=== PATIENT | male | born 1945 | race Caucasian/White ===

== ENCOUNTER → 2017-08-28 | Outpatient (CLI) | payer MEDICARE, OTHER ==
[~2017-08-28] MED LIST: ASCO500; ASPI325EC; CALCA500CH; FLAX; GLUCOSAMINE &1 EACH; Multiple Vitam1 EAC1
== END ==
LOC: LAB 11:37
DX: R97.20 Elevated prostate specific antigen [PSA] (principal)
CPT/HCPCS: 87070

== ENCOUNTER → 2017-09-05 | Outpatient (CLI) | payer MEDICARE, OTHER | END | disposition home or self-care (01) | LOC: PLD 08:27 | DX: N42.31 Prostatic intraepithelial neoplasia (principal) | CPT/HCPCS: 88305; 88341; 88342 ==

== ENCOUNTER → 2022-04-04 | Outpatient (CLI) | payer MEDICARE, OTHER | LOC: PLD 11:07 → LAB SHORT 11:07 | DX: D03.4 Melanoma in situ of scalp and neck (principal); L57.0 Actinic keratosis | CPT/HCPCS: 88305; 88342 ==

== ENCOUNTER → 2022-04-27 | Outpatient (CLI) | payer MEDICARE, OTHER | LOC: LAB SHORT 11:47 → PLD 11:47 | DX: D03.4 Melanoma in situ of scalp and neck (principal) | CPT/HCPCS: 88305 ==

== ENCOUNTER → 2022-09-06 | Outpatient (CLI) | payer MEDICARE, OTHER | END | disposition home or self-care (01) | LOC: LAB SHORT 12:14 → PLD 12:14 | DX: C44.519 Basal cell carcinoma of skin of other part of trunk (principal); D03.59 Melanoma in situ of other part of trunk | CPT/HCPCS: 88305 ==

== ENCOUNTER → 2022-09-26 | Outpatient (CLI) | payer MEDICARE, OTHER | LOC: PLD 12:06 → LAB SHORT 12:06 | DX: D03.59 Melanoma in situ of other part of trunk (principal) | CPT/HCPCS: 88305 ==

== ENCOUNTER → 2023-03-08 | Outpatient (CLI) | payer MEDICARE, OTHER ==
[2023-03-08 13:11] LABS: Source, Urine Voided
[2023-03-08 15:36] LABS: Bilirubin, Urine Neg (Neg); Blood, Urine Neg (Neg); Color, Urine Amber (P-Yellow); Glucose Qualitative, Urine Neg (Neg); Ketones, Urine 1+ (Neg); Leukocyte Esterase, Urine 1+ (Neg); Nitrite, Urine Neg (Neg); Protein, Urine 1+ (Neg); Specific Gravity, Urine 1.025 (1.003-1.022); Urobilinogen, Urine NORM (Normal)
[2023-03-08 15:56] LABS: Appearance, Urine Hazy (Clear)
[2023-03-08 15:57] LABS: Bacteria Mod /hpf; Red Blood Cells, Urine 0-2 /hpf (0-2)
[2023-03-08 15:58] LABS: Amorphous Light (0-Heavy); Calcium Oxalate Crystals Mod /hpf; Mucus Light (0-Heavy); Squamous Epithelial Cells Rare /hpf (Few)
== END ==
LOC: LAB SHORT 13:09 → LAB 13:09
PROVIDERS: Internal Medicine
DX: R35.0 Frequency of micturition (principal)
CPT/HCPCS: 81001; 87086

== ENCOUNTER 2024-03-27 17:46 | Emergency (ER) | payer MEDICARE, OTHER ==
[~2024-03-27] VITALS: Ht 172.7 cm; Wt 81.7 kg
[2024-03-27 18:13] VITALS: BP 104/82
[2024-03-27] MEDS ORDERED: Acetaminophen 500 MG Tab PO ONE (18:15)
[2024-03-27 18:21] LABS: Source, Urine Clean Catch
[2024-03-27 18:29] LABS: Appearance, Urine Cloudy (Clear); Bilirubin, Urine Neg (Neg); Blood, Urine 2+ (Neg); Color, Urine Yellow (P-Yellow); Glucose Qualitative, Urine Neg (Neg); Ketones, Urine Neg (Neg); Leukocyte Esterase, Urine 3+ (Neg); Nitrite, Urine Neg (Neg); Protein, Urine 2+ (Neg); Specific Gravity, Urine 1.025 (1.003-1.022); Urobilinogen, Urine NORM (Normal)
[2024-03-27 18:52] LABS: Bacteria Many /hpf; Mucus Light (0-Heavy); Red Blood Cells, Urine 0-2 /hpf (0-2); Squamous Epithelial Cells Rare /hpf (Few); White Blood Cells, Urine TNTC /hpf (0-5)
[2024-03-27] MEDS ORDERED: Bactrim Ds Tab1 EACH PO (19:44)
[2024-03-27] MEDS ORDERED: Trimethoprim/Sulfamethoxazole DS Tab PO ONE (19:45)
== END 2024-03-27 21:01 | disposition home or self-care (01) ==
LOC: ER 17:46
PROVIDERS: Physician Assistant
DX: N39.0 Urinary tract infection, site not specified (principal); Z79.899 Other long term (current) drug therapy; Z79.82 Long term (current) use of aspirin; Z87.891 Personal history of nicotine dependence
CPT/HCPCS: 51702; 51798; 81001; 87077; 87086; 87186; 99283; A9270

== ENCOUNTER 2024-04-24 15:11 | Observation (INO) | payer MEDICARE, OTHER ==
[~2024-04-24] VITALS: Ht 172.7 cm; Wt 77.1 kg
[~2024-04-24 15:11] MED LIST changes: -ASCO500; +ASCO500 PO; -ASPI325EC; +ASPI500 PO; +Bactrim Ds Tab1 EACH PO; -CALCA500CH; +Calcium Carbon500 MG PO
[2024-04-24 15:48] LABS: BASOPHILS ABSOLUTE AUTO 0.02 K/mm3 (0.00-0.23); BASOPHILS PERCENT AUTO 0 % (0-2); EOSINOPHILS ABSOLUTE AUTO 0.04 K/mm3 (0.00-0.68); EOSINOPHILS PERCENT AUTO 0 % (0-6); Hematocrit 39.8 % (37.0-53.0); Hemoglobin 13.6 g/dL (13.5-17.5); IMMATURE GRAN ABSOLUTE AUTO 0.04 K/mm3 (0.00-0.10); IMMATURE GRAN PERCENT AUTO 0 % (0-1); LYMPHOCYTES ABSOLUTE AUTO 1.98 K/mm3 (0.84-5.20); LYMPHOCYTES PERCENT AUTO 21 % (21-46); MONOCYTES ABSOLUTE AUTO 0.87 K/mm3 (0.16-1.47); MONOCYTES PERCENT AUTO 9 % (4-13); Mean Corpuscular HGB 31.6 pg (26.0-34.0); Mean Corpuscular HGB Conc 34.2 g/dL (31.5-36.5); Mean Corpuscular Volume 93 fL (80-100); Mean Platelet Volume 10.9 fL (9.1-12.4); NEUTROPHILS ABSOLUTE AUTO 6.54 K/mm3 (1.96-9.15); NEUTROPHILS PERCENT AUTO 69 % (41-73); Platelet Count 275 K/mm3 (150-400); RDW Coefficient Variation 12.6 % (11.7-14.2); White Blood Cell Count 9.49 K/mm3 (4.00-11.30)
[2024-04-24 15:56] LABS: Source, Urine Clean Catch
[2024-04-24 16:03] LABS: Appearance, Urine Hazy (Clear); Bilirubin, Urine Neg (Neg); Blood, Urine 4+ (Neg); Color, Urine Yellow (P-Yellow); Glucose Qualitative, Urine Neg (Neg); Ketones, Urine 1+ (Neg); Leukocyte Esterase, Urine 1+ (Neg); Nitrite, Urine Neg (Neg); Protein, Urine 4+ (Neg); Specific Gravity, Urine 1.025 (1.003-1.022); Urobilinogen, Urine 1+ (Normal)
[2024-04-24 16:16] LABS: Bacteria Many /hpf; Squamous Epithelial Cells Rare /hpf (Few)
[2024-04-24 16:21] LABS: Albumin, Blood 3.2 g/dL (3.4-5.0); Albumin/Globulin Ratio 0.9 (0.8-1.8); Bilirubin, Total 0.6 mg/dL (0.1-1.0); Bun/Creatinine Ratio 17.3 (12.0-20.0); Calcium, Blood 8.9 mg/dL (8.5-10.1); Creatinine, Blood 1.62 mg/dL (0.60-1.20); Globulin, Blood 3.6 g/dL (2.2-4.0); Potassium, Blood 3.5 mmol/L (3.5-5.5); Total Protein, Blood 6.8 g/dL (6.4-8.2)
[2024-04-24] MEDS ORDERED: NS 1,000 ML IV SCH ×2 (17:35→19:25)
[2024-04-24] MEDS ORDERED: CefTRIAXone Sodium 1,000 MG in NS 100 ML IV ONE (17:35)
[2024-04-24 18:26] LABS: Source, Urine Clean Catch
[2024-04-24 18:29] LABS: Appearance, Urine Clear (Clear); Bilirubin, Urine Neg (Neg); Blood, Urine 1+ (Neg); Color, Urine Yellow (P-Yellow); Glucose Qualitative, Urine Neg (Neg); Ketones, Urine Neg (Neg); Leukocyte Esterase, Urine Neg (Neg); Nitrite, Urine Neg (Neg); Protein, Urine 1+ (Neg); Urobilinogen, Urine NORM (Normal)
[2024-04-24 18:36] LABS: Bacteria Rare /hpf; Red Blood Cells, Urine 0-2 /hpf (0-2); Squamous Epithelial Cells Rare /hpf (Few)
[2024-04-24] MEDS ORDERED: Ondansetron HCl 2 MG / ML 2ML Vial IV PRN (19:20)
[2024-04-24] MEDS ORDERED: FLU VACC TS2024-25(6MOS UP)/PF 45 MCG/0.5 ML SYRINGE IM ONE (19:20)
[2024-04-24 20:17] LABS: Creatinine, Urine Random 36.9 mg/dL (27.00-270.00)
[2024-04-24] MEDS ORDERED: Doxycycline Hyclate 100 MG TAB PO SCH (21:00)
[2024-04-24] MEDS ORDERED: Lactobacil 2-S.Thermo-Bifido 1 1 Cap PO SCH (21:00)
[2024-04-24 21:01] LABS: Eosinophils-Raw #,Urine 0
[2024-04-24 21:02] LABS: White Blood Cells Urine 0-2 /hpf (0-5)
[2024-04-24] MEDS ORDERED: LOSA50 PO (21:26)
[2024-04-24 21:27] VITALS: BP 97/60
[2024-04-24] MEDS ORDERED: CHLO25B PO (21:27)
[2024-04-25 04:30] VITALS: BP 117/77
[2024-04-25 06:21] LABS: Bun/Creatinine Ratio 15.9 (12.0-20.0); Calcium, Blood 8.8 mg/dL (8.5-10.1); Creatinine, Blood 1.13 mg/dL (0.60-1.20); Magnesium, Blood 1.8 mg/dL (1.6-2.4); Potassium, Blood 3.9 mmol/L (3.5-5.5)
--- NOTE | 2024-04-25 06:46 | NUR ---
SHIFT SUMMARY: Pt is admitted for acute kidney injury and is a full code. Is alert and able to make needs known. ADLs have been IND. denies pain or discomfort when asked. Bladder scan PVR was 174. But has been voiding through out the shift with out issues.
[2024-04-25 07:28] VITALS: BP 114/75
[2024-04-25] MEDS ORDERED: ASPI500 PO (08:31)
[2024-04-25] MEDS ORDERED: CefTRIAXone Sodium 1,000 MG in NS 100 ML IV SCH (09:00)
[2024-04-25] MEDS ORDERED: Heparin Sodium,Porcine 5,000 UNIT/0.5 ML SDV SC SCH (09:00)
[2024-04-25] MEDS ORDERED: MELATONIN5 M1 PO (10:40)
[2024-04-25] MEDS ORDERED: CIPR250 PO (13:16)
--- NOTE | 2024-04-25 13:46 | NUR ---
DISCHARGE NOTE: PT AND PATIENT'S EDUCATION ON DISCHARGE PLAN. PT TO FOLLOW UP WITH UROLOGY AND PCP, PT TO SCHEDULE. MEDS FAXED TO [facility]. PT STATES ALL QUESTIONS AND CONCERNS HAVE BEEN ADDRESSED. PT EDUCATED TO RETURN TO URGENT CARE/ER IF SYSMPTOMS WORSEN. PIV REMOVED, INTACT. TO TRANSPORT IN PERSONAL VEHICLE
== END 2024-04-25 13:35 | disposition home or self-care (01) ==
LOC: ER 15:11 → MEDS 15:12 → ENPENDDIS 04-25 12:37 → MEDS 04-25 13:35
PROVIDERS: Nurse Practitioner Acute Care; Physician Assistant; Student in an Organized Health Care Education/Training Program; ADMIT Internal Medicine
DX: N17.9 Acute kidney failure, unspecified (principal); N41.9 Inflammatory disease of prostate, unspecified; I10 Essential (primary) hypertension; N40.1 Benign prostatic hyperplasia with lower urinary tract symptoms; Z79.899 Other long term (current) drug therapy
CPT/HCPCS: 36415; 51798; 74177; 76870; 80048; 80053; 81001; 82570; 83735; 84153; 84300; 85025; 87086; 87205; 96365-59; 96366; 96372; 99284-25; A9270; G0378; J0696; J1644; J7030; Q9967

== ENCOUNTER → 2024-04-26 | Outpatient (CLI) | payer MEDICARE, OTHER ==
[~2024-04-26] MED LIST changes: +CHLO25B PO; +CIPR250 PO; +LOSA50 PO; +MELATONIN5 M1 PO
[2024-04-26 16:21] LABS: BASOPHILS ABSOLUTE AUTO 0.02 K/mm3 (0.00-0.23); BASOPHILS PERCENT AUTO 0 % (0-2); EOSINOPHILS ABSOLUTE AUTO 0.05 K/mm3 (0.00-0.68); EOSINOPHILS PERCENT AUTO 1 % (0-6); Hemoglobin 13.6 g/dL (13.5-17.5); IMMATURE GRAN ABSOLUTE AUTO 0.04 K/mm3 (0.00-0.10); IMMATURE GRAN PERCENT AUTO 1 % (0-1); LYMPHOCYTES ABSOLUTE AUTO 1.71 K/mm3 (0.84-5.20); LYMPHOCYTES PERCENT AUTO 22 % (21-46); MONOCYTES ABSOLUTE AUTO 0.88 K/mm3 (0.16-1.47); MONOCYTES PERCENT AUTO 11 % (4-13); Mean Corpuscular HGB 31.3 pg (26.0-34.0); Mean Corpuscular Volume 92 fL (80-100); Mean Platelet Volume 10.4 fL (9.1-12.4); NEUTROPHILS ABSOLUTE AUTO 5.04 K/mm3 (1.96-9.15); NEUTROPHILS PERCENT AUTO 65 % (41-73); Platelet Count 268 K/mm3 (150-400); RDW Coefficient Variation 12.6 % (11.7-14.2); RDW Standard Deviation 42.4 fL (35.1-46.3); Red Blood Cell Count 4.34 M/mm3 (4.30-5.90); White Blood Cell Count 7.74 K/mm3 (4.00-11.30)
[2024-04-26 16:23] LABS: Bun/Creatinine Ratio 14.9 (12.0-20.0); Calcium, Blood 9.7 mg/dL (8.5-10.1); Creatinine, Blood 1.21 mg/dL (0.60-1.20); Potassium, Blood 3.8 mmol/L (3.5-5.5)
== END ==
LOC: LAB 16:13 → LAB SHORT 16:13
PROVIDERS: Physician Assistant
DX: R33.9 Retention of urine, unspecified (principal)
CPT/HCPCS: 80048; 85025

== ENCOUNTER → 2024-05-01 | Outpatient (CLI) | payer MEDICARE, OTHER | LOC: LAB SHORT 08:40 → LAB 08:40 | DX: R33.9 Retention of urine, unspecified (principal) | CPT/HCPCS: 87077; 87086; 87186 ==